=== PATIENT | female | born 1950 | race Caucasian/White ===

== ENCOUNTER → 2019-09-15 11:25 | Outpatient (CLI) | payer MEDICARE, OTHER, SELFPAY ==
[2019-09-15 12:16] LABS: Absolute Lymphocyte Count 0.68 X10^3/uL (0.83-4.51); Absolute Neutrophil Count 5.7 X10^3/uL (2.0-7.7); Basophil# 0.03 X10^3/uL; Basophil% 0.4 % (0-1); Eosinophil# 0.04 X10^3/uL; Eosinophils% 0.6 % (0-5); Hematocrit 31.3 % (37-47); Hemoglobin 9.8 g/dL (12.0-15.0); Lymphocyte # 0.68 X10^3/ul (4.0); Mean Corp Hgb Conc 31.3 g/dL (32-36); Mean Corpuscular Hgb 30.2 pg (27.0-32.0); Mean Corpuscular Volume 96.6 fL (81-99); Mean Platelet Vol. 8.9 fl (6.2-12.0); Monocyte# 0.26 X10^3/uL; Monocyte% 3.8 % (0-10); NRBC Flagged by Analyzer 0 % (0-5); Neutrophil # 5.74 X10^3/uL (2.7-7.7); Neutrophil % 84.9 % (47-70); Platelet Count 231 K/mm3 (150-450); RBC Distribution Width CV 13.3 % (11.6-14.6); RBC Distribution Width SD 47.3 fl (35.1-43.9); Red Blood Count 3.24 M/mm3 (4.2-5.4); White Blood Count 6.8 K/mm3 (4.4-11.0)
[2019-09-17 20:07] LABS: Alternaria tenuis <0.10 kU/L (Class 0); Ash, White <0.10 kU/L (Class 0); Aspergillus fumigatus <0.10 kU/L (Class 0); Bermuda Grass <0.10 kU/L (Class 0); Birch <0.10 kU/L (Class 0); Black Walnut <0.10 kU/L (Class 0); Cat Hair / Dander,Stand <0.10 kU/L (Class 0); Cedar, Mountain <0.10 kU/L (Class 0); Cladosporium herbarum <0.10 kU/L (Class 0); Cockroach, American <0.10 kU/L (Class 0); Cottonwood <0.10 kU/L (Class 0); D farinae Mite <0.10 kU/L (Class 0); D pteronyssinus <0.10 kU/L (Class 0); Dog Epithelia <0.10 kU/L (Class 0); Elm, American White <0.10 kU/L (Class 0); Immunoglobulin E 10 IU/mL (6-495); Maple/Box Elder <0.10 kU/L (Class 0); Mulberry, White <0.10 kU/L (Class 0); Oak, White <0.10 kU/L (Class 0); Pecan <0.10 kU/L (Class 0); Penicillium Notatum <0.10 kU/L (Class 0); Pigweed, Rough <0.10 kU/L (Class 0); Ragweed, Short/Common <0.10 kU/L (Class 0); Russian Thistle <0.10 kU/L (Class 0); Sheep Sorrel <0.10 kU/L (Class 0); Sycamore, American <0.10 kU/L (Class 0); Timothy Grass <0.10 kU/L (Class 0)
[2019-09-18 04:20] LABS: Mouse Urine <0.10 kU/L (Class 0)
[2019-09-19 20:07] LABS: Aspirgillus flavus Negative (Neg:<1:1); Aspirgillus fumigatus Negative (Neg:<1:1); Aspirgillus niger Negative (Neg:<1:1); Cytoplasmic Ab (C-ANCA) <1:20 titer (Neg:<1:20)
[2019-09-19 21:07] LABS: Immunoglobulin E 10 IU/mL (6-495); Perinuclear Ab (P-ANCA) <1:20 titer (Neg:<1:20)
== END ==
PROVIDERS: PCP Internal Medicine; Referring Provider Internal Medicine Critical Care Medicine; Visit Provider Internal Medicine Critical Care Medicine
DX: M33.90 Dermatopolymyositis, unspecified, organ involvement unspecified (principal); J45.909 Unspecified asthma, uncomplicated
CPT/HCPCS: 36415; 82785; 85025; 86003; 86256; 86606

== ENCOUNTER → 2019-09-17 | Outpatient (CLI) | payer MEDICARE, OTHER, SELFPAY | END | disposition home or self-care (01) | LOC: LABSPEC 11:01 | PROVIDERS: PCP Internal Medicine; Visit Provider Internal Medicine Critical Care Medicine | DX: J45.909 Unspecified asthma, uncomplicated (principal) | CPT/HCPCS: 87070; 87077; 87205 ==

== ENCOUNTER → 2019-09-24 13:41 | Outpatient (CLI) | payer MEDICARE, OTHER, SELFPAY ==
--- NOTE | 2019-09-24 13:42 | CT_ITS ---
STUDY: CT CHEST WITHOUT CONTRAST REASON FOR EXAM: Female, 69 years old. DERMATOMYOSITIS RADIATION DOSAGE (If Supplied By Facility): CTDIvol = ( 6.04 ) mGy, DLP = ( 231.86 ) mGycm TECHNIQUE: Transaxial imaging was performed without the administration of intravenous contrast material. Multiplanar coronal and sagittal images were reformatted. Individualized dose optimization techniques were used for this CT. COMPARISON: None. FINDINGS: There is evidence of volume loss in the posterior aspect of the right upper lobe clips are bronchograms and possible bronchiectasis. This may represent scarring. Follow-up is recommended. There is no demonstrated pleural abnormality. There are calcifications of the coronary arteries. There are multiple small lymph nodes within the mediastinum, which are normal in size and morphology most compatible with reactive lymph hyperplasia. Normal hilar regions. Normal unenhanced pulmonary arteries. There is atherosclerotic calcification of the aortic arch with tortuosity and elongation of the aortic arch and descending thoracic aorta. There are multi-level degenerative changes of the thoracic spine. There is no demonstrated abnormality of the visualized upper abdomen. CT/Chest without Contrast IMPRESSION: Focal area of volume loss in the posterior aspect of the right middle lobe with evidence of bronchiectasis and air bronchograms. This most likely represents scarring. Follow-up is recommended. Electronically Signed: Yoel Britton, at 14:43 EDT , Service support ,
== END ==
PROVIDERS: PCP Internal Medicine; Referring Provider Internal Medicine Critical Care Medicine; Visit Provider Internal Medicine Critical Care Medicine
DX: J84.9 Interstitial pulmonary disease, unspecified (principal)
CPT/HCPCS: 71250

== ENCOUNTER → 2019-11-03 11:43 | Outpatient (CLI) | payer MEDICARE, OTHER, SELFPAY ==
[2019-11-03 12:11] LABS: Absolute Lymphocyte Count 1.42 X10^3/uL (0.83-4.51); Absolute Neutrophil Count 4.3 X10^3/uL (2.0-7.7); Basophil# 0.03 X10^3/uL; Basophil% 0.5 % (0-1); Eosinophil# 0.14 X10^3/uL; Eosinophils% 2.2 % (0-5); Hematocrit 33.9 % (37-47); Hemoglobin 10.6 g/dL (12.0-15.0); Lymphocyte # 1.42 X10^3/ul (4.0); Lymphocyte % 22.6 % (19-41); Mean Corp Hgb Conc 31.3 g/dL (32-36); Mean Corpuscular Hgb 29.9 pg (27.0-32.0); Mean Corpuscular Volume 95.8 fL (81-99); Mean Platelet Vol. 9.3 fl (6.2-12.0); Monocyte% 6.4 % (0-10); NRBC Flagged by Analyzer 0 % (0-5); Neutrophil # 4.27 X10^3/uL (2.7-7.7); Neutrophil % 68.1 % (47-70); Platelet Count 270 K/mm3 (150-450); RBC Distribution Width CV 13.7 % (11.6-14.6); RBC Distribution Width SD 48.7 fl (35.1-43.9); Red Blood Count 3.54 M/mm3 (4.2-5.4); White Blood Count 6.3 K/mm3 (4.4-11.0)
[2019-11-06 09:38] LABS: Immunoglobulin E 9 IU/mL (6-495)
== END ==
PROVIDERS: PCP Internal Medicine; Referring Provider Internal Medicine Critical Care Medicine; Visit Provider Internal Medicine Critical Care Medicine
DX: M33.90 Dermatopolymyositis, unspecified, organ involvement unspecified (principal); J45.909 Unspecified asthma, uncomplicated
CPT/HCPCS: 36415; 82785; 85025

== ENCOUNTER 2019-11-06 10:58 | Day surgery (SDC) | payer MEDICARE, OTHER, SELFPAY ==
--- NOTE | 2019-11-04 07:53 | PCM.HP.STD ---
History of Present Illness Date of Admission: 11/06/19 Chief Complaint: Abnormal chest CT/bronchiectasis The patient is a 69-year-old female who presents for outpatient bronchoscopy after having been evaluated in the pulmonary medicine clinic on November 02. If you recall, the patient initially presented to our office in September 2019 for the evaluation of possible interstitial lung disease. The patient is currently being followed by Dr. 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 She was previously being followed by Dr. Christiansen of pulmonary medicine. The patient is currently prescribed Plaquenil. CT chest completed in November 2018 revealed scattered calcified granulomas within the lungs along with indeterminate subcentimeter noncalcified pulmonary nodules. The main pulmonary artery was noted to be dilated. Pulmonary function studies completed in November 2018 revealed no evidence of an obstructive ventilatory impairment. The FVC was reduced at 64% of predicted. However, total lung capacity was within normal limits. Per documentation from the patient's previous pulmonary provider, she has a history of restrictive lung disease and dermatomyositis, diagnosed in 2009. She has a [id number] smoking history, having quit completely in 1984. Surface echocardiogram from December 2018 was a difficult exam due to suboptimal positioning and body is. However, LV systolic function was noted to be normal with an ejection fraction of 65%. RV size and function was normal. The patient denied a history of childhood asthma. However, she did report having been diagnosed sometime in her late 20s and placed an inhaler regimen. Although her personal smoking history is relatively limited, her does smoke within the home. The patient was seen by ENT previously, during which time a VLS was performed without any significant pathology noted. She was previously employed working in a medical office setting. CT chest dated September 2019 revealed focal area of atelectasis in the right middle lobe with associated bronchiectasis. The remainder of the lung parenchyma was free of interstitial lung disease. RAST profile from September was negative. Past Medical History Past Medical History (Chronic Problems): Chronic Problems (Last Updated 11/03/19 @ 11:41 by Minerva Pugh) Hypertension (Chronic) Medical History: Medical History (Last Updated 11/03/19 @ 11:41 by Minerva Pugh) Bronchiectasis (Acute) J47.9 History of stomach ulcers (Acute) Z87.19 Pneumonia (Acute) J18.9 Hypertension (Chronic) I10 Epilepsia (Acute) G40.909 Diabetes (Acute) E11.9 Depression (Acute) F32.9 Asthma (Acute) J45.909 Anemia (Acute) D64.9 Allergies No Known Allergies Allergy (Unverified 11/02/19 08:36) Home Medications: Ambulatory Orders Medication Instructions Recorded albuterol sulfate 90 mcg/actuation 2 inh INHALATION Q6H PRN 09/14/19 breath activated powder inhaler atorvastatin 80 mg tablet 80 mg PO DAILY 09/14/19 carbamazepine 200 mg tablet 200 mg PO BID 09/14/19 hydroxychloroquine 200 mg tablet 200 mg PO DAILY 09/14/19 lansoprazole 30 mg capsule,delayed 30 mg PO DAILY 09/14/19 release montelukast 10 mg tablet 10 mg PO DAILY 09/14/19 sertraline 100 mg tablet 100 mg PO DAILY 09/14/19 atenolol 25 mg tablet 50 mg PO DAILY tab 09/15/19 cyanocobalamin (vitamin B-12) 1,000 mcg PO DAILY 09/15/19 1,000 mcg capsule insulin glargine 100 unit/mL 10 unit SC DAILY 09/15/19 subcutaneous solution metformin 500 mg/5 mL oral solution 500 mg PO DAILY 09/15/19 fluticasone propionate 230 2 puff INHALATION BID #8 g 10/07/19 mcg-salmeterol 21 mcg/actuation HFA inhaler tiotropium bromide 1.25 2 puff INHALATION DAILY #4 g 11/03/19 mcg/actuation mist for inhalation Surgical History: Surgical History (Last Reviewed 11/02/19 @ 08:36 by Minerva Pugh) History of knee surgery (Resolved) Z98.890 History of hernia repair (Resolved) Z98.890, Z87.19 Smoking Status: Former smoker Review of Systems Constitutional: Denies: Chills, Fever, Weight Change HEENT: Denies: Head Aches, Sinus Congestion, Sinus Drainage Cardiovascular: Denies: Chest Pain, Palpitations Respiratory: Reports: Cough, Shortness of Breath, Sputum production, Wheezing Gastrointestinal: Denies: Abdominal Pain, Nausea, Vomiting Genitourinary: Denies: Dysuria Musculoskeletal: Denies: Joint Pain, Joint Tenderness Skin: Denies: Rash, Wounds Neurological: Denies: Numbness, Tingling, Focal weakness Psychiatric: Denies: Anxiety, Depression, Homicidal Ideations, Suicidal Ideations Hematologic/ Lymphatic: Denies: Easy Bruising, Easy Bleeding VTE Information - Inpt Only VTE Present on Admission: No VTE Mechan Device Prophylaxis: None VTE Pharm Prophylaxis ordered?: No Reason prophylaxis not ordered:: Treatment Not Indicated - Physical Exam General: Alert, Cooperative HEENT: Atraumatic, Normocephalic Oral: Moist Mucosa Neck: Supple, No JVD, Negative Carotid Bruits Lungs: Diminished, Wheezes Cardiovascular: Regular rate, Regular Rhythm Abdomen: Bowel Sounds Present, Soft, Non Tender Extremities: No edema, Capillary Refill Less than 3 Seconds Skin: No rashes, No breakdown Musculoskeletal: No Tenderness to Palpation of Joints or Extremities Neurological: Cranial nerves II-XII grossly intact Psych/Mental Status: Normal Affect, Appropriate Assessment/Plan All Active Problems (Last Updated 11/03/19 @ 11:41 by Minerva Pugh) Bronchiectasis (Acute) History of knee surgery (Resolved) History of hernia repair (Resolved) History of stomach ulcers (Acute) Pneumonia (Acute) Epilepsia (Acute) Diabetes (Acute) Depression (Acute) Asthma (Acute) Anemia (Acute) Assessment & Plan 1. Abnormal Chest CT/ Bronchiectasis / Recurrent Asthma Exacerbations Plan The patient was initially referred to the pulmonary office for the evaluation of possible interstitial lung disease. The patient did previously have a CT completed in 2018 which failed to demonstrate any significant interstitial process. However, given her underlying dermatomyositis, there is always concern for concurrent disease related interstitial lung process or pulmonary hypertension. Therefore, a high-resolution chest CT was completed in September 2019. Again, this imaging study failed to demonstrate any form of evolving interstitial lung disease. However, the patient did appear to have possible right middle lobe atelectasis and focal bronchiectasis. Given these findings, coupled with the patient's symptomatic respiratory status, I did recommend that we proceed with outpatient bronchoscopy with bronchoalveolar lavage of the right middle lobe to evaluate for the presence of a non-tuberculosis mycobacterial infection or other potential bacterial/viral etiologies. Risks and benefits of the proposed procedure were discussed with the patient. She is in agreement to proceed.
[2019-11-06] VITALS (9 sets, daily range): BP systolic 103–159; BP diastolic 40–136; PULSE 59–75; RESP 16–18; TEMP 36.6–37.1; O2SAT 92–98; BMI 49.5
--- NOTE | 2019-11-06 | FLU_PTH ---
PATIENT: SURENDRA VELAZQUEZ LOC: EN U#:[id number] AGE/SX: 69/F ROOM: RE11/06/[address]: Dr. Fortino Diamond DO : 1950 BED: DIS: 11/06/2019 SPEC #: [id number] RECD: 11/06/19 12:30 STATUS: EDSON INOCENCIA #: [id number] ANABELL: 11/06/19 00:[address]: Fortino Diamond DEPT: CYTOLOGY RECD BY: Carl Perez ENTERED: 11/06/19 13:23 SP TYPE: Fluid OTHR DR: Dr. Naa Aranda MD Tissues: Lung, NOS Procedures: Special Stain Group II Surgery Specimen Level IV Cytospin Fluid HEADER OPERATION: Bronchoscopy with BAL PRE-OP DIAGNOSIS: Abnormal chest CT / bronchiectasis TISSUE SUBMITTED: Bronchial fluid for cytology DIAGNOSIS CYTOLOGY Bronchial fluid for cytology (cytospin and cell block): Marked acute inflammation. Epithelial cells with mild atypia, favor reactive. AM:teresa 11/09/19 CYTOLOGY STUDY Slides are reviewed. CYTOLOGY GROSS Received is 15 ml of red cloudy fluid labeled with the patient's name and and designated per the requisition as bronchial. Submitted for cytology preparation including cell block. / teresa 11/06/19 TC:5 CPT: 68858, 39736
[2019-11-06] MEDS: Lactated Ringers 1,000 ML 75 ML IV (11:54)
[2019-11-06 12:00] LABS: Bedside Glucose 139 mg/dL (70-110)
[2019-11-06] MEDS: Lidocaine 2% Jelly 1 APPLIC Tube (12:10)
--- NOTE | 2019-11-06 12:26 | OP.BRONCH_ITS ---
Patient Name: Lakisha Maher Procedure Date: 11/06/2019 11:12 AM Date of : 1950 Age: 69 Procedure: Bronchoscopy Indications: Bronchiectasis, Abnormal CT scan of chest, Chronic cough Providers: Fortino Diamond MD Referring MD: Naa Aranda Medicines: Monitored Anesthesia Care Complications: No immediate complications Procedure: Pre-Anesthesia Assessment: - A History and Physical has been performed. Patient meds and allergies have been reviewed. The risks and benefits of the procedure and the sedation options and risks were discussed with the patient. All questions were answered and informed consent was obtained. Patient identification and proposed procedure were verified prior to the procedure by the physician and the nurse in the procedure room. Mental Status Examination: alert and oriented. Airway Examination: normal oropharyngeal airway. Respiratory Examination: clear to auscultation. CV Examination: normal. ASA Grade Assessment: II - A patient with mild systemic disease. After reviewing the risks and benefits, the patient was deemed in satisfactory condition to undergo the procedure. The anesthesia plan was to use monitored anesthesia care (MAC). Immediately prior to administration of medications, the patient was re-assessed for adequacy to receive sedatives. The heart rate, respiratory rate, oxygen saturations, blood pressure, adequacy of pulmonary ventilation, and response to care were monitored throughout the procedure. The physical status of the patient was re-assessed after the procedure. After I obtained informed consent, the scope was passed under direct vision. Throughout the procedure, the patient's blood pressure, pulse, and oxygen saturations were monitored continuously. The bronchoscope was introduced through the mouth and advanced to the tracheobronchial tree. The procedure was accomplished without difficulty. The patient tolerated the procedure well. Findings: The oropharynx appears normal. The larynx appears normal. The vocal cords appear normal. The subglottic space is normal. The trachea is of normal caliber. The nga is sharp. The tracheobronchial tree was examined to at least the first subsegmental level. Bronchial mucosa and anatomy are normal; there are no endobronchial lesions. Bilateral Lung Abnormalities: Copious, mucopurulent, tenacious, thick secretions were found throughout the tracheobronchial tree, most pronounced in the right lower and middle lobe. They were not obstructing the airway. BAL was performed in the right middle lobe of the lung and sent for cell count, bacterial culture, viral smears & culture, and fungal & AFB analysis and cytology. 60 mL of fluid were instilled. 25 mL were returned. The return was mucopurulent. Mucous plugs were present in the return fluid. Impression: - Bronchiectasis - Abnormal CT scan of chest - Chronic cough - Copious, mucopurulent, tenacious, thick secretions were found throughout the tracheobronchial tree. - Bronchoalveolar lavage was performed. Recommendation: - Await BAL results. Procedure Code(s): --- Professional --- 18523, Bronchoscopy, rigid or flexible, including fluoroscopic guidance, when performed; with bronchial alveolar lavage Diagnosis Code(s): --- Professional --- J47.9, Bronchiectasis, uncomplicated R05, Cough R09.89, Other specified symptoms and signs involving the circulatory and respiratory systems R93.8, Abnormal findings on diagnostic imaging of other specified body structures CPT copyright 2017 [employer]. All rights reserved. The codes documented in this report are preliminary and upon barn and property manager review may be revised to meet current compliance requirements. DO Fortino Damon MD 11/06/2019 12:25:28 PM This report has been signed electronically. Number of Addenda: 0 Note Initiated On: 11/06/2019 11:12 AM
[2019-11-06 12:45] LABS: Cytology, Body Fluid / CSF SEE PATHOLOGY REPORT
[2019-11-06 13:40] LABS: Appearance/Body Fluid TURBID; Color/Body Fluid COLORLESS; Source- Body Fluid BRONCHIAL LAVAGE
[2019-11-06 13:41] LABS: Red Cell Count/Body Fluid 10960 /mm3
[2019-11-06 13:42] LABS: White Blood Count/Body Fluid 1120 /mm3
[2019-11-06 14:34] LABS: Body Fluid QC Type(s) BF1Q,BF2Q; Lymphocytes 2 %; Neutrophil (Segs) 98 %
[2019-11-09 14:06] LABS: Pathologist Comment/Body Fluid Reviewed
== END 2019-11-06 13:20 | disposition home or self-care (01) ==
LOC: EN 10:59 → AC 11:02
PROVIDERS: PCP Internal Medicine; Referring Provider Internal Medicine; Visit Provider Internal Medicine Critical Care Medicine
PROC: 0BJ08ZZ Inspection of Tracheobronchial Tree, Via Natural or Artificial Opening Endoscopic (ICD-10-PCS; CPT 31622; principal; 2019-11-06 11:45)
DX: J47.9 Bronchiectasis, uncomplicated (principal); I10 Essential (primary) hypertension; E11.9 Type 2 diabetes mellitus without complications; F32.9 Major depressive disorder, single episode, unspecified; D64.9 Anemia, unspecified; G40.909 Epilepsy, unspecified, not intractable, without status epilepticus; J45.909 Unspecified asthma, uncomplicated; Z87.19 Personal history of other diseases of the digestive system; Z87.01 Personal history of pneumonia (recurrent); Z79.4 Long term (current) use of insulin; Z79.84 Long term (current) use of oral hypoglycemic drugs; Z79.899 Other long term (current) drug therapy; Z87.891 Personal history of nicotine dependence
CPT/HCPCS: 31624; 82962; 87015; 87070; 87075; 87077; 87116; 87186; 87205; 87206; 87252; 87278; 88108; 88305; 88313; 89050; J7120; J2405

== ENCOUNTER → 2019-12-01 09:16 | Outpatient (CLI) | payer MEDICARE, OTHER, SELFPAY ==
[2019-11-06 11:20] VITALS: BMI 49.5
--- NOTE | 2019-12-02 09:08 | PFT ---
INTRODUCTION: The patient is a 69-year-old female that presents for pulmonary function studies secondary to a diagnosis of asthma. Respiratory therapy reports good patient effort. Bronchodilators were used during testing. INTERPRETATION: Forced expiration spirometry demonstrates no evidence of a large airways obstructive ventilatory defect. There was no significant response to aerosolized bronchodilators, based upon strict ATS criteria. However, the patient did demonstrate a rather robust mid flow bronchodilator response. Spirograms are of good quality and plateau normally. Body plethysmography was performed and revealed a decreased TLC to 4.01 L, 78% of predicted, indicative of a mild restrictive ventilatory impairment. The remainder of the lung volumes are symmetrically reduced. Diffusing capacity by single breath CO is moderately reduced at 56% of predicted. IMPRESSION: Mild restrictive ventilatory impairment with disproportionate moderate reduction in diffusing capacity. There are no previous pulmonary function studies available for comparison.
== END ==
PROVIDERS: PCP Internal Medicine; Referring Provider Internal Medicine Critical Care Medicine; Visit Provider Internal Medicine Critical Care Medicine
DX: J45.909 Unspecified asthma, uncomplicated (principal)
CPT/HCPCS: 94060; 94726; 94729

== ENCOUNTER → 2020-01-15 11:10 | Outpatient (CLI) | payer MEDICARE, OTHER, SELFPAY ==
[2020-01-15 09:56] VITALS: BMI 49.4
[2020-01-15 11:34] LABS: Absolute Lymphocyte Count 1.84 X10^3/uL (0.83-4.51); Basophil# 0.03 X10^3/uL; Basophil% 0.4 % (0-1); Eosinophil# 0.12 X10^3/uL; Eosinophils% 1.6 % (0-5); Hematocrit 33.1 % (37-47); Hemoglobin 10.7 g/dL (12.0-15.0); Lymphocyte # 1.84 X10^3/ul (4.0); Lymphocyte % 24.3 % (19-41); Mean Corp Hgb Conc 32.3 g/dL (32-36); Mean Corpuscular Hgb 30.4 pg (27.0-32.0); Mean Platelet Vol. 9.2 fl (6.2-12.0); Monocyte# 0.52 X10^3/uL; Monocyte% 6.9 % (0-10); NRBC Flagged by Analyzer 0 % (0-5); Neutrophil # 5.02 X10^3/uL (2.7-7.7); Neutrophil % 66.3 % (47-70); Platelet Count 253 K/mm3 (150-450); RBC Distribution Width CV 13.7 % (11.6-14.6); RBC Distribution Width SD 47.1 fl (35.1-43.9); Red Blood Count 3.52 M/mm3 (4.2-5.4); White Blood Count 7.6 K/mm3 (4.4-11.0)
[2020-01-15 11:50] LABS: ALB/GLOB Ratio 0.8 RATIO (0.9-2.4); AST(SGOT) 17 U/L (15-37); Alanine Aminotransfer ALT/SGPT 27 U/L (13-56); Albumin, Serum 3.3 g/dL (3.2-5.0); Alkaline Phosphatase 86 U/L (45-117); Anion Gap 5 (5-15); BUN 17 mg/dL (7-18); BUN/Creat Ratio 17.7 RATIO (10-20); CPK Total, Creatine Kinase 74 U/L (26-192); Calcium,Total 8.8 mg/dL (8.5-10.1); Chloride 104 mmol/L (98-107); Creatinine, Serum 0.96 mg/dL (0.55-1.02); EST Glomerular Filtration Rate 62 mL/min (>60); Est Glom Filt Rate - Afr Amer 74 mL/min (>60); Glucose 128 mg/dL (74-106); Potassium 4.2 mmol/L (3.5-5.1); Protein, Total 7.3 g/dL (6.4-8.2); Sodium Level 138 mmol/L (136-145)
[2020-01-18 04:07] LABS: Alternaria alternata <0.10 kU/L (Class 0); Bermuda Grass <0.10 kU/L (Class 0); Bluegrass, Kentucky <0.10 kU/L (Class 0); Cat Hair/Dander, Standard <0.10 kU/L (Class 0); D farinae Mite <0.10 kU/L (Class 0); D pteronyssinus <0.10 kU/L (Class 0); Dog Epithelia <0.10 kU/L (Class 0); Elm, American White <0.10 kU/L (Class 0); Oak, White <0.10 kU/L (Class 0); Plantain, English <0.10 kU/L (Class 0); Ragweed, Short/Common <0.10 kU/L (Class 0)
[2020-01-18 09:39] LABS: Mouse Urine <0.10 kU/L (Class 0)
[2020-01-18 14:08] LABS: Immunoglobulin E 11 IU/mL (6-495)
[2020-01-18 15:04] LABS: Aldolase 5.1 U/L (3.3-10.3)
== END ==
PROVIDERS: PCP Internal Medicine; Referring Provider Nurse Practitioner Acute Care; Visit Provider Nurse Practitioner Acute Care
DX: J45.909 Unspecified asthma, uncomplicated (principal)
CPT/HCPCS: 36415; 80053; 82085; 82550; 82785; 85025; 86003

== ENCOUNTER → 2020-01-19 | Outpatient (CLI) | payer MEDICARE, OTHER, SELFPAY ==
[2020-01-15 09:56] VITALS: BMI 49.4
== END | disposition home or self-care (01) ==
LOC: LABSPEC 14:36
PROVIDERS: PCP Internal Medicine; Referring Provider Nurse Practitioner Acute Care; Visit Provider Nurse Practitioner Acute Care
DX: J45.909 Unspecified asthma, uncomplicated (principal)
CPT/HCPCS: 87070; 87077; 87186; 87205

== ENCOUNTER → 2020-02-24 09:56 | Outpatient (CLI) | payer MEDICARE, OTHER, SELFPAY ==
[2020-02-24 08:57] VITALS: BMI 50.1
[2020-02-24 10:24] LABS: Absolute Lymphocyte Count 1.64 X10^3/uL (0.83-4.51); Absolute Neutrophil Count 4.4 X10^3/uL (2.0-7.7); Basophil# 0.04 X10^3/uL; Basophil% 0.6 % (0-1); Eosinophil# 0.16 X10^3/uL; Eosinophils% 2.4 % (0-5); Hematocrit 34.1 % (37-47); Hemoglobin 10.9 g/dL (12.0-15.0); Lymphocyte # 1.64 X10^3/ul (4.0); Lymphocyte % 24.7 % (19-41); Mean Corpuscular Hgb 29.7 pg (27.0-32.0); Mean Corpuscular Volume 92.9 fL (81-99); Mean Platelet Vol. 8.7 fl (6.2-12.0); Monocyte# 0.45 X10^3/uL; Monocyte% 6.8 % (0-10); NRBC Flagged by Analyzer 0 % (0-5); Neutrophil # 4.35 X10^3/uL (2.7-7.7); Neutrophil % 65.3 % (47-70); Platelet Count 249 K/mm3 (150-450); RBC Distribution Width CV 13.5 % (11.6-14.6); Red Blood Count 3.67 M/mm3 (4.2-5.4); White Blood Count 6.7 K/mm3 (4.4-11.0)
== END ==
PROVIDERS: PCP Internal Medicine; Referring Provider Nurse Practitioner Acute Care; Visit Provider Nurse Practitioner Acute Care
DX: J47.1 Bronchiectasis with (acute) exacerbation (principal); J45.51 Severe persistent asthma with (acute) exacerbation
CPT/HCPCS: 36415; 85025; 94667

== ENCOUNTER → 2020-07-14 10:36 | Outpatient (CLI) | payer MEDICARE, OTHER, SELFPAY ==
[2020-07-14 07:45] VITALS: BMI 49.3
[2020-07-14 11:03] LABS: Absolute Lymphocyte Count 1.73 X10^3/uL (0.83-4.51); Absolute Neutrophil Count 3.6 X10^3/uL (2.0-7.7); Basophil# 0.05 X10^3/uL; Basophil% 0.8 % (0-1); Eosinophils% 4.9 % (0-5); Hematocrit 30.7 % (37-47); Hemoglobin 9.9 g/dL (12.0-15.0); Lymphocyte # 1.73 X10^3/ul (0.83-4.51); Lymphocyte % 28.5 % (19-41); Mean Corp Hgb Conc 32.2 g/dL (32-36); Mean Corpuscular Hgb 28.9 pg (27.0-32.0); Mean Corpuscular Volume 89.5 fL (81-99); Mean Platelet Vol. 8.2 fl (6.2-12.0); Monocyte# 0.37 X10^3/uL; Monocyte% 6.1 % (0-10); NRBC Flagged by Analyzer 0 % (0-5); Neutrophil # 3.61 X10^3/uL (2.7-7.7); Neutrophil % 59.4 % (47-70); Platelet Count 341 K/mm3 (150-450); RBC Distribution Width CV 14.6 % (11.6-14.6); RBC Distribution Width SD 47.7 fl (35.1-43.9); Red Blood Count 3.43 M/mm3 (4.2-5.4); White Blood Count 6.1 K/mm3 (4.4-11.0)
[2020-07-14 11:34] LABS: ALB/GLOB Ratio 0.7 RATIO (0.9-2.4); AST(SGOT) 18 U/L (15-37); Alanine Aminotransfer ALT/SGPT 22 U/L (13-56); Albumin, Serum 3.2 g/dL (3.2-5.0); Alkaline Phosphatase 87 U/L (45-117); Anion Gap 7 (5-15); BUN 17 mg/dL (7-18); BUN/Creat Ratio 16.8 RATIO (10-20); CPK Total, Creatine Kinase 65 U/L (26-192); Calcium,Total 8.9 mg/dL (8.5-10.1); Chloride 98 mmol/L (98-107); Creatinine, Serum 1.01 mg/dL (0.55-1.02); EST Glomerular Filtration Rate 58 mL/min (>60); Est Glom Filt Rate - Afr Amer 70 mL/min (>60); Globulin 4.5 g/dL (2.2-4.2); Glucose 141 mg/dL (74-106); Potassium 4.8 mmol/L (3.5-5.1); Protein, Total 7.7 g/dL (6.4-8.2); Sodium Level 132 mmol/L (136-145)
[2020-07-15 20:32] LABS: Aldolase 3.8 U/L (3.3-10.3)
== END ==
PROVIDERS: PCP Internal Medicine; Referring Provider Internal Medicine Rheumatology; Visit Provider Internal Medicine Rheumatology
DX: M06.4 Inflammatory polyarthropathy (principal); M35.89 Other specified systemic involvement of connective tissue; Z79.899 Other long term (current) drug therapy; M33.90 Dermatopolymyositis, unspecified, organ involvement unspecified; M17.0 Bilateral primary osteoarthritis of knee; M18.0 Bilateral primary osteoarthritis of first carpometacarpal joints; M15.9 Polyosteoarthritis, unspecified; K21.9 Gastro-esophageal reflux disease without esophagitis; I10 Essential (primary) hypertension; E11.9 Type 2 diabetes mellitus without complications; J45.909 Unspecified asthma, uncomplicated; G40.409 Other generalized epilepsy and epileptic syndromes, not intractable, without status epilepticus; M47.897 Other spondylosis, lumbosacral region; D51.0 Vitamin B12 deficiency anemia due to intrinsic factor deficiency
CPT/HCPCS: 36415; 80053; 82085; 82550; 85025

== ENCOUNTER 2021-04-12 10:00 | Outpatient (CLI) | payer MEDICARE, OTHER, SELFPAY ==
[2021-04-12 10:38] LABS: Hematocrit 30.6 % (37-47); Hemoglobin 9.8 g/dL (12.0-15.0); Mean Corpuscular Hgb 29.2 pg (27.0-32.0); Mean Corpuscular Volume 91.1 fL (81-99); Platelet Count 264 K/mm3 (150-450); RBC Distribution Width CV 14.4 % (11.6-14.6); RBC Distribution Width SD 47.6 fl (35.1-43.9); Red Blood Count 3.36 M/mm3 (4.2-5.4); White Blood Count 6.6 K/mm3 (4.4-11.0)
[2021-04-12 11:04] LABS: ALB/GLOB Ratio 0.6 RATIO (0.9-2.4); AST(SGOT) 17 U/L (15-37); Alanine Aminotransfer ALT/SGPT 22 U/L (13-56); Albumin, Serum 2.8 g/dL (3.2-5.0); Alkaline Phosphatase 119 U/L (45-117); Anion Gap 5 (5-15); BUN 14 mg/dL (7-18); BUN/Creat Ratio 12.5 RATIO (10-20); Calcium,Total 8.4 mg/dL (8.5-10.1); Chloride 103 mmol/L (98-107); Cholesterol 151 mg/dL (200); Creatinine, Serum 1.12 mg/dL (0.55-1.02); EST Glomerular Filtration Rate 51 mL/min (>60); Est Glom Filt Rate - Afr Amer 62 mL/min (>60); Glucose 178 mg/dL (74-106); High Density Lipoprotein 59 mg/dL; Protein, Total 7.8 g/dL (6.4-8.2); Sodium Level 135 mmol/L (136-145); Thyroid Stim Hormone (TSH) 1.51 uIU/mL (0.358-3.74); Triglycerides 93 mg/dL; Very Low Density Lipoprotein 19 mg/dL (5-40)
[2021-04-12 11:06] LABS: Hemoglobin A1c 7.6 % (3.8-5.6)
== END 2021-04-12 23:59 | disposition home or self-care (01) ==
LOC: PAVLAB 10:07
PROVIDERS: PCP Internal Medicine; Referring Provider Internal Medicine; Visit Provider Internal Medicine
DX: E78.5 Hyperlipidemia, unspecified (principal); E11.22 Type 2 diabetes mellitus with diabetic chronic kidney disease; Z79.4 Long term (current) use of insulin; N18.31 Chronic kidney disease, stage 3a; E03.9 Hypothyroidism, unspecified; I12.9 Hypertensive chronic kidney disease with stage 1 through stage 4 chronic kidney disease, or unspecified chronic kidney disease
CPT/HCPCS: 36415; 80053; 80061; 83036; 84443; 85027

== ENCOUNTER → 2021-09-28 | Outpatient (CLI) | payer MEDICARE, OTHER, SELFPAY | END | disposition home or self-care (01) | LOC: PSN 08:54 | PROVIDERS: PCP Internal Medicine; Referring Provider Internal Medicine Critical Care Medicine; Visit Provider Internal Medicine Critical Care Medicine | DX: J45.50 Severe persistent asthma, uncomplicated (principal); J18.9 Pneumonia, unspecified organism | CPT/HCPCS: 87633; 87635; C9803; U0003; U0005 ==